=== PATIENT | female | born 1960 | race Caucasian/White ===

== ENCOUNTER → 2019-07-30 14:53 | Outpatient (REF) | payer OTHER, SELFPAY | LOC: ANHLAB 14:53 | PROVIDERS: Visit Provider Surgery Plastic and Reconstructive Surgery | DX: R22.32 Localized swelling, mass and lump, left upper limb (principal); M67.432 Ganglion, left wrist | CPT/HCPCS: 88304 ==

== ENCOUNTER 2022-02-26 11:22 | Outpatient (CLI) | payer OTHER, SELFPAY ==
--- NOTE | ~2022-02-26 | US_ITS ---
EXAMINATION:US venous doppler LE LT INDICATION:Left leg swelling TECHNIQUE: Multiple grayscale, color flow and Doppler images of the left lower extremity deep venous systems were obtained and reviewed. COMPARISON:No prior studies for comparison. FINDINGS: The common femoral, superficial femoral and popliteal veins demonstrate normal respiratory variation, augmentation and compressibility. Color flow is also seen within the posterior tibial, pe roneal, greater saphenous and profunda veins. IMPRESSION: 1: No lower extremity deep venous thrombosis. Reviewed, dictated and finalized at location A. [employer]
== END 2022-02-26 11:23 | disposition home or self-care (01) ==
PROVIDERS: PCP Family Medicine Sports Medicine; Visit Provider Orthopaedic Surgery
DX: R22.42 Localized swelling, mass and lump, left lower limb (principal)
CPT/HCPCS: 93971

== ENCOUNTER 2022-08-29 02:28 | Day surgery (SDC) | payer BC, SELFPAY ==
[2022-08-21 12:05] VITALS: BMI 51.6
--- NOTE | 2022-08-21 12:10 | PC.NURSE ---
Report to the Outpatient Waiting Room, entrance under the green pavilion located off [facility], at time 0830 on date 08/29/22. Planned Procedure Time: 1030. Time changes happen often and if your time is changed the preop area will call you the afternoon before. - You and your visitor will be asked to self-screen and do not enter if you have any COVID symptoms. - A mask is optional within the hospital at this time. Patients may have clear liquids (water, carbonated beverages, clear teas, apple juice) until 3 hours prior to surgery with a maximum of 20 ounces. - No food from midnight until time of surgery Take the following medications with a SIP of water the morning of surgery: N/A DO NOT STOP ANY OF YOUR OTHER PRESCRIPTION MEDICATIONS PRIOR TO SURGERY EXCEPT THE FOLLOWING Medications to discontinue per physician: N/A Date to take last dose: N/A Please no make-up, nail croatian, hairspray, perfume, deodorant, or body powder the day of surgery. No jewelry (including any body piercings) or valuables the day of surgery, leave them at home. Please take a shower or bath the night before, or the morning of, surgery with an antibacterial soap. Wear comfortable, loose fitting clothing. - Jewelry must be removed prior to entering the operating room. Rings and piercings that are not removed may be cut off. - The hospital will not accept responsibility for valuables. - Please leave all valuables, including medications, at home the day of surgery. If you are going home after surgery, a licensed four horse hitch driver must drive you home. - NO public transportation without another adult if you receive anesthesia. - We recommend that an adult stay with you for 24 hours following discharge. - We also recommend that you do not drive, make important decision, drink alcoholic beverages, or take any drugs that were not prescribed by your health care provider for at least 24 hours after your discharge time. Follow any additional instructions given to you from your surgeon. If you or anyone in your household have experienced Covid symptoms in the past week, please notify your surgeon or the nurse liaison at the phone number below for possible testing. Telephone instructions given to PT - MARIANA REGAN and asked if any additional questions and then verbalized understanding. Patient advised to call surgeon office or pre surgery nurse liaison [phone] if any additional questions.
--- NOTE | 2022-08-24 14:27 | PM.IMHP ---
H&P: HPI History of Present Illness Date/Time: 08/24/22 14:27 Chief Complaint: Patient is a 62-year-old female who sees Dr. Pelayo regarding her left knee the patient has a chronic ongoing history of pain localized to the left knee particularly medially she has mechanical symptoms with a catching sensation has trouble twisting or turning squatting kneeling going up and down stairs. X-rays show some osteoarthritis in the knee joint but states recently her pain has come on along with the new mechanical symptoms. Patient has tried cortisone therapy and anti-inflammatories symptoms continue. An MRI scan at this time shows tricompartmental thinning of the cartilage along with a tear of the body of the medial meniscus with extrusion medially. There is a complex radial tear of the posterior horn lateral meniscus appears to be intact there is a small knee joint effusion and a tiny popliteal fossa cyst. This stabilizing ligaments of the knee are otherwise intact. The patient at this point is discussed further treatment options in detail with Dr. Pelayo she is aware that at 5 ft 10 in tall 350 lb and BMI of 50.2 she has higher risk for surgical complications and certainly not a candidate for total knee arthroplasty this time. She would like to try a more conservative approach with regards to doing a knee arthroscopy partial medial meniscectomy she is also where she has pre-existing osteoarthritis and may not get full relief for her knee pain from knee arthroscopy however she would like to proceed. Review of Systems Review of Systems: Ten point review of systems otherwise negative [facility] Surgical History Surgical History History of bilateral breast reduction surgery History of History of hysterectomy Social History Social History Smoking packs per day: 0.5 Smoking cigarettes per day: 10.0 Years smoked: 35 Smoking pack-years: 17.50 Smoking status: Former smoker Tobacco type: cigarettes Smoking end date: 04/01/20 Alcohol intake: never Substance use: never Substance use type: does not use Living arrangements: with family Spiritual care concerns: No Meds Home Medications and Allergies Home Medications Medication Instructions Recorded Confirmed Type No Home Medications 07/14/19 08/21/22 History Allergies Allergy/AdvReac Type Severity Reaction Status Date / Time No Known Allergies Allergy Mild Verified 08/21/22 12:04 Exam Narrative: on exam the patient is noted be well-developed obese female no acute distress alert oriented x3. Normal mood and affect. Hearing and vision intact. Respiratory is good no distress. Pulse regular rate and rhythm. Abdomen benign. Extremities show the patient's left knee to be painful with manipulation range of motion she has tenderness on the medial joint line with a positive Chanel exam negative Kemar knee joint is otherwise stable strength is 5 5 she has mild crepitation through the arc of motion mild effusion no erythema heat or other signs of infection. Neurovascularly she is intact skin is intact central nervous system within normal limits MRI scan as above. Assessment and Plan Assessment and plan (1) Tear of medial meniscus of left knee: Code(s): S83.242A - Other tear of medial meniscus, current injury, left knee, initial encounter Status: Acute Plan by MRI and exam the patient is is noted to have a medial meniscal tear left knee with above associated findings. Patient has discussed risks benefits limitations and alternatives to surgery in great detail Dr. Pelayo she is now ready to proceed with left knee arthroscopy partial medial meniscectomy proceed as indicated. The patient is scheduled undergo surgery 08/29/2022 at [facility] Dr. Pelayo. The patient voiced understanding and agrees with above plan.
[2022-08-29] VITALS (9 sets, daily range): BP systolic 115–148; BP diastolic 52–86; PULSE 61–102; RESP 12–20; TEMP 36.2–36.5; O2SAT 96–99
[2022-08-29] MEDS: ACETAMINOPHEN 500 MG TABLET 1000 MG PO (07:59)
[2022-08-29] MEDS: LACTATED RINGERS 1,000 ML 30 ML IV CONT (08:00)
--- NOTE | 2022-08-29 08:09 | WPDHPUPDATE1 ---
History and Physical Update Update Date/Time: 08/29/22 08:09 History and Physical has been reviewed, including an updated exam of the patient. There are NO changes in the patient's condition. Risks, benefits, and alternatives have been discussed and questions answered. Patient agrees to proceed with procedure.
[2022-08-29] MEDS: KETOROLAC 15 MG/ML VIAL (*BKC) IV PUSH (08:10)
--- NOTE | 2022-08-29 08:17 | P.PNAN_ITS ---
Anes - Initial Pre Proc Eval Procedure: Operation Date: 08/29/22 09:00 Proposed Procedures p Left Knee Arthroscopy, Partial Medial Meniscectomy, Proceed as Indicated - Srinivasa Pelayo MD Date/Time: 08/29/22 08:17 Surgeon: Srinivasa Pelayo MD Pre Op Diagnosis: Meniscal Tear Left Knee Patient Data Age: 62 Gender: F Height: 1.78 m Weight: 163.3 kg Allergies Allergy/AdvReac Type Severity Reaction Status Date / Time No Known Allergies Allergy Mild Verified 08/29/22 07:55 Home Medications Medication Instructions Recorded Confirmed Type No Home Medications 07/14/19 08/29/22 History Patient hx anesthesia problems: none Family hx anesthesia problems: none Results Review: All pre-operative results and documents have been reviewed as part of the pre- operative evaluation. [facility] Past Medical History Medical History (Updated 08/29/22 @ 08:18 by Vj Goldman MD) Morbid obesity MOLLY (obstructive sleep apnea) Surgical History Surgical History History of bilateral breast reduction surgery History of History of hysterectomy Social History Social History Smoking packs per day: 0.5 Smoking cigarettes per day: 10.0 Years smoked: 35 Smoking pack-years: 17.50 Smoking status: Former smoker Tobacco type: cigarettes Smoking end date: 04/01/20 Alcohol intake: never Substance use: never Substance use type: does not use Living arrangements: with family Spiritual care concerns: No Anes - Eval Final PreProcedure Day of Procedure 08/29/22 08:17 Patient weight: morbidly obese Heart: regular rate and rhythm Lungs: clear to auscultation Airway: Mallampati scale class II Neurological: alert and oriented Last oral intake: >/= 8 hours ASA classification: III Emergent: no Anesthetic plan: proceed Anesthesia type and monitoring: general LMA and standard monitoring Results Review: All pre-operative results and documents have been reviewed as part of the pre- operative evaluation. Informed Consent: The patient's anesthetic plan and its attendant risks and benefits were discussed with the patient/family/POA. Questions were solicited and answers provided to the satisfaction of the patient/family/POA.
[2022-08-29] MEDS: ceFAZolin 3 GM/D5W 100 ML 100 ML IVPB (09:11)
[2022-08-29] MEDS: LIDO 1%/EPINEPHRINE 1:100,000 50 ML VIAL 30 ML INFILTRATE (09:37)
--- NOTE | 2022-08-29 09:48 | W.PM.PROC2 ---
Procedure Note - Detailed Date of Procedure 08/29/22 Pre-op Diagnosis Meniscal Tear Left Knee Post-op Diagnosis Same Procedure Performed Left knee arthroscopy with partial meniscetomy Surgeon Srinivasa Pelayo MD Anesthesia General Description of Procedure Patient brought to the operating room and anesthetic was administered. The knee was steriley prepped and drapped in the usual manner. Standard portals were used. Superior medial portal was used for the outflow cannula, inferior lateral portal was used for the scope, inferior medial portal was used for the instruments. Arthroscopy was performed, the patellar femoral joint degenerative changes. The medial compartment showed a complex tear. The lateral compartment showed fraying. The ACL was intact. Using baskets and lizzette the meniscal tear was trimmed back to a stable base so the nothing further could be pulled into the joint. Any loose or delaminated fragments were gently trimmed to a stable base. At this point the instruments were withdrawn, sutures placed and patient left the operating room in satisfactory condition. Estimated Blood Loss 20 Drains No Packing No Pathology None sent Complications No immediate complications Condition Stable Disposition PACU
[2022-08-29] MEDS: fentaNYL CITRATE INJ (*CRX) 100 MCG/2 ML VIAL 25 MCG IV PUSH ×4 (10:26→10:56)
[2022-08-29] MEDS: oxyCODONE HCL (*CRX) 5 MG TAB IR PO (11:26)
== END 2022-08-29 12:05 | disposition home or self-care (01) ==
PROVIDERS: PCP Family Medicine Sports Medicine; Visit Provider Orthopaedic Surgery
PROC: (CPT 29870; principal; 2022-08-29 09:00)
DX: M23.332 Other meniscus derangements, other medial meniscus, left knee (principal); M17.12 Unilateral primary osteoarthritis, left knee; G47.33 Obstructive sleep apnea (adult) (pediatric); E66.01 Morbid (severe) obesity due to excess calories; Z68.43 Body mass index [BMI] 50.0-59.9, adult; Z87.891 Personal history of nicotine dependence
CPT/HCPCS: 29881; A9270; J0690; J1100; J1885; J2250; J2405; J2704; J3010; J7120